=== PATIENT | male | born 1985 | race Caucasian/White ===

== ENCOUNTER 2019-01-16 07:44 | Emergency (ER) | payer OTHER ==
[~2019-01-16] VITALS: Ht 182.9 cm; Wt 89.0 kg
[~2019-01-16 07:44] MED LIST: ALBU90AE INHALATION; HYDR-4011 PO; IBUP-1542 PO; MULTI PO; TAMS-14 PO
[2019-01-16 07:46] VITALS: Ht 182.9 cm; Wt 89.0 kg
[2019-01-16] MEDS ORDERED: SOD CHLORIDE 0.9% 500 ML IV STA (07:50)
[2019-01-16] MEDS ORDERED: ONDANSETRON 4 MG INJ IV STA (07:50)
[2019-01-16] MEDS ORDERED: KETOROLAC 30 MG INJ IV STA (07:50)
[2019-01-16] MEDS ORDERED: HYDROmorphONE 1 MG/ML SYG IV STA (07:50)
[2019-01-16] MEDS ORDERED: morphine 2 MG INJ IV STA (09:39)
--- NOTE | 2019-01-16 10:19 | ERD ---
ER Documentation Chief Complaint Chief Complaint left flank pain HPI 33-year-old male presents the emergency department complaining of right flank pain. Patient states he was in his usual state of health until yesterday which time he began developing a sharp stabbing nonspecific right flank pain. This then became more severe today and started radiating to his groin. This was associated with no fevers, chills, hematuria. He reported no nausea or vomiting. He reported the pain is severe and came to the emergency department describing 10 out of 10 pain. ROS All systems reviewed and are negative except as per history of present illness. Medications Home Meds Active Scripts Tamsulosin Hcl* (Flomax*) 0.4 Mg Cap.er.24h, 0.4 MG PO BID for 5 Days, #30 CAP Prov:LYNDA BARTHOLOMEW 01/16/19 Hydrocodone/Acetaminophen ([place] 5-325 Tablet) 1 Each Tablet, 1 TAB PO Q6H PRN for PAIN, #7 TAB Prov:LYNDA BARTHOLOMEW 01/16/19 Ibuprofen* (Motrin*) 600 Mg Tab, 600 MG PO Q6H PRN for PAIN AND OR ELEVATED TEMP, #30 TAB Prov:LYNDA BARTHOLOMEW 01/16/19 Reported Medications Multivitamins* (Theragran*) 1 Tab Tab, 1 TAB PO DAILY, TAB 01/16/19 Albuterol Sulfate (Proair Respiclick) 90 Mcg Aer.pow.ba, 2 PUFFS INHALATION Q6 PRN for SHORTNESS OF BREATH, #1 BOTTLE 01/16/19 Allergies Allergies: Coded Allergies: peanut (Unverified Allergy, Unknown, 01/16/19) PMhx/Soc History of Surgery: Yes (tonsillectomy ) Anesthesia Reaction: No Hx Neurological Disorder: No Hx Respiratory Disorders: Yes (asthma ) Hx Cardiac Disorders: No Hx Psychiatric Problems: No Hx Miscellaneous Medical Probl: No Hx Alcohol Use: Yes Hx Substance Use: No Hx Tobacco Use: No Smoking Status: Never smoker FmHx Noncontributory for chief complaint Physical Exam Vitals Vital Signs Date Temp Pulse Resp B/P (MAP) Pulse Ox O2 O2 Flow FiO2 Time Delivery Rate 01/16/19 58 18 134/92 100 Room Air 09:47 (106) 01/16/19 97.8 71 18 153/90 99 07:46 (111) Physical Exam GENERAL: The patient is well developed and appropriate for usual state of health in no apparent distress, patient appears uncomfortable HEENT: Pupils equal, round, and reactive to light. EOMI. There is no scleral icterus. NECK: C-spine is soft and supple, there is no meningismus. There is no cervical lymphadenopathy. LUNGS: Clear to auscultation bilaterally. There are no rales, wheezes or rhon chi. HEART: Regular rate and rhythm, no murmurs, clicks, rubs or gallops. ABDOMEN: Soft, non-tender, non-distended. There are bowel sounds in all four quadrants. No rebound or guarding. No CVA tenderness EXTREMITIES: There is no peripheral cyanosis or edema. No focal swelling or erythema. NEURO: The patient moves all four extremities with 5/5 strength. Cranial nerves II - XII are intact. Normal gait. Alert and oriented SKIN: There is no apparent rash or petechiae. HEME/LYMPHATIC: There is no evidence of excessive bruising or lymphedema. PSYCHIATRIC: The patient does not appear anxious or depressed. Result Diagram: 01/16/19 0801/16/19 0803 Results 24 hrs Laboratory Tests Test 01/16/19 08:03 White Blood Count 6.1 10^3/ul Red Blood Count 4.74 10^6/ul Hemoglobin 14.2 g/dl Hematocrit 43.5 % Mean Corpuscular Volume 91.8 fl Mean Corpuscular Hemoglobin 30.0 pg Mean Corpuscular Hemoglobin Concent 32.6 g/dl Red Cell Distribution Width 12.2 % Platelet Count 198 10^3/UL Mean Platelet Volume 11.4 fl Immature Granulocytes % 0.200 % Neutrophils % 55.1 % Lymphocytes % 30.8 % Monocytes % 8.0 % Eosinophils % 5.2 % Basophils % 0.7 % Nucleated Red Blood Cells % 0.0 /100WBC Immature Granulocytes # 0.010 10^3/ul Neutrophils # 3.4 10^3/ul Lymphocytes # 1.9 10^3/ul Monocytes # 0.5 10^3/ul Eosinophils # 0.3 10^3/ul Basophils # 0.0 10^3/ul Nucleated Red Blood Cells # 0.0 10^3/ul Urine Color YELLOW Urine Clarity SLIGHTLY CLOUDY Urine pH 5.0 Urine Specific [place] 1.024 Urine Ketones NEGATIVE mg/dL Urine Nitrite NEGATIVE mg/dL Urine Bilirubin NEGATIVE mg/dL Urine Urobilinogen NEGATIVE mg/dL Urine Leukocyte Esterase NEGATIVE [place]/ul Urine Microscopic RBC > 182 /HPF Urine Microscopic WBC 2 /HPF Urine Mucus FEW /HPF Urine Hemoglobin 3+ mg/dL Urine Glucose NEGATIVE mg/dL Urine Total Protein 1+ mg/dl Sodium Level 142 mmol/L Potassium Level 4.0 mmol/L Chloride Level 101 mmol/L Carbon Dioxide Level 32 mmol/L Anion Gap 9 Blood Urea Nitrogen 23 mg/dl Creatinine 1.27 mg/dl Est Glomerular Filtrat Rate mL/min > 60 mL/min Glucose Level 103 mg/dl Calcium Level 10.2 mg/dl Total Bilirubin 0.7 mg/dl Direct Bilirubin 0.00 mg/dl Indirect Bilirubin 0.7 mg/dl Aspartate Amino Transf (AST/SGOT) 27 IU/L Alanine Aminotransferase (ALT/SGPT) 33 IU/L Alkaline Phosphatase 56 IU/L Total Protein 8.3 g/dl Albumin 4.9 g/dl Globulin 3.40 g/dl Albumin/Globulin Ratio 1.44 Lipase 82 U/L Current Medications Medications Dose Sig/Amrita Start Time Status Last (Trade) Ordered Route PRN Stop Time Admin Dose Reason Admin Sodium 500 ml @ Q1H STAT 01/16/19 DC 01/16/19 Chloride 500 mls/hr IV 07:50 01/16/19 08:02 08:49 0.5 mg ONCE STAT 01/16/19 DC Hydromorphone IV 07:50 01/16/19 HCl 07:51 (Dilaudid) Ondansetron 4 mg ONCE STAT 01/16/19 DC 01/16/19 HCl (Zofran IV 07:50 01/16/19 08:01 Inj) 07:51 Ketorolac 30 mg ONCE STAT 01/16/19 DC 01/16/19 Tromethamine IV 07:50 01/16/19 08:02 (Toradol) 07:51 Morphine 2 mg ONCE STAT 01/16/19 DC 01/16/19 Sulfate IV 09:39 01/16/19 09:45 (morphine) 09:40 Procedures/MDM Patient was taken to a room, seen and evaluated. Comfort measures were initiated. Diagnostic tests were ordered and reviewed. RADIOLOGY: Reviewed with the radiologist REEVALUATION: 1015: After multiple doses of pain medication, patient seemed to be improved. Diagnostic tests were appreciated MEDICAL DECISION MAKING: Otherwise healthy 33-year-old with a history of kidney stones presents to the emergency department with what appears to be recurrent kidney stone type pain. Patient shows no evidence of urinary tract infection or pyelonephritis. Patient has no indications of significant high-grade obstruction. His pain is well controlled and he now appears to be appropriate for outpatient care at this time Departure Diagnosis: Primary Impression: Flank pain Condition: Stable Patient Instructions: Kidney Stone W/ Colic Additional Instructions: Call Dr. Shiva Palmer, Urology, for follow up this week. [phone] LYNDA BARTHOLOMEW Jan 16, 2019 10:19
[2019-01-16 10:25] VITALS: BP 132/86; PULSE 64; RESP 18
== END 2019-01-16 10:26 | disposition home or self-care (01) ==
LOC: E/R 07:44
DX: R10.9 Unspecified abdominal pain (principal); J45.909 Unspecified asthma, uncomplicated
CPT/HCPCS: 36415; 76775; 80053; 81001; 83690; 85025; 96374; 96375; 99285; J1885; J2270; J2405; J7040; J1170